=== PATIENT | male | born 2000 | race Caucasian/White ===

== ENCOUNTER 2024-06-17 14:15 | Emergency (ER) | payer MEDICAID ==
[~2024-06-17] VITALS: Ht 188 cm; Wt 120.5 kg
[2024-06-17 15:41] VITALS: BP 132/79; PULSE 63; RESP 16; TEMP 98; O2SAT 99
== END 2024-06-17 15:26 | disposition home or self-care (01) ==
LOC: ER 14:17
DX: S00.93XA Contusion of unspecified part of head, initial encounter (principal); X58.XXXA Exposure to other specified factors, initial encounter; Y93.89 Activity, other specified; Y92.89 Other specified places as the place of occurrence of the external cause; Y99.8 Other external cause status
CPT/HCPCS: 72040; 99283